=== PATIENT | female | born 1940 | race Caucasian/White ===

== ENCOUNTER 2023-11-06 09:18 | Outpatient (CLI) | payer MEDICARE, BC ==
[2023-11-06] VITALS (8 sets, daily range): BP systolic 119–179; BP diastolic 64–81; PULSE 92–109; RESP 18; O2SAT 94
[~2023-11-06] VITALS: Ht 152.4 cm; Wt 78.5 kg
[2023-11-06] MEDS ORDERED: regadenoson 0.4mg/5ml syringe IV ONE ×2 (10:50→10:55)
[2023-11-06] MEDS ORDERED: aminophylline 250mg/10ml inj. IV PRN (10:50)
[2023-11-06] MEDS ORDERED: nitroGLYCERIN 0.4mg SUBLingual tab SL PRN (10:50)
[2023-11-06] MEDS ORDERED: normal saline 500ml IV soln 500 ML IV ONE (10:50)
== END 2023-11-06 23:59 | disposition home or self-care (01) ==
LOC: RAD 09:18
PROVIDERS: ATTEND Internal Medicine Interventional Cardiology
DX: R94.31 Abnormal electrocardiogram [ECG] [EKG] (principal); R06.02 Shortness of breath
CPT/HCPCS: 78452; 93017; A9500; J2785; J7040; J0280